=== PATIENT | female | born 1965 | race Caucasian/White ===

== ENCOUNTER → 2023-04-17 17:32 | Outpatient (REF) | payer OTHER, SELFPAY | LOC: HWWDC 17:32 | PROVIDERS: ATTENDING PHYSICIAN Student in an Organized Health Care Education/Training Program | DX: Z12.31 Encounter for screening mammogram for malignant neoplasm of breast (principal) | CPT/HCPCS: 77063; 77067 ==

== ENCOUNTER → 2023-10-05 14:39 | Outpatient (REF) | payer OTHER, SELFPAY | LOC: HWRAD 14:39 | PROVIDERS: ATTENDING PHYSICIAN Physician Assistant; FAMILY PHYSICIAN Student in an Organized Health Care Education/Training Program | DX: M25.50 Pain in unspecified joint (principal); M25.511 Pain in right shoulder; M25.561 Pain in right knee; M54.50 Low back pain, unspecified; M79.671 Pain in right foot | CPT/HCPCS: 72114; 73030; 73560; 73630 ==

== ENCOUNTER → 2024-08-25 17:47 | Outpatient (REF) | payer OTHER, SELFPAY | LOC: WDC 17:47 | PROVIDERS: ATTENDING PHYSICIAN Physician Assistant Medical | DX: Z12.31 Encounter for screening mammogram for malignant neoplasm of breast (principal) | CPT/HCPCS: 77063; 77067 ==